=== PATIENT | female | born 1950 | race Caucasian/White ===

== ENCOUNTER 2017-10-31 08:16 | Emergency (ER) | payer MEDICARE, OTHER ==
[~2017-10-31] VITALS: Ht 167.6 cm; Wt 68.0 kg
[2017-10-31 08:42] LABS: ABSOLUTE LYMPHOCYTES 1.9 thou/uL (0.8-5.3); ABSOLUTE MONOCYTES 0.6 thou/uL (0.0-1.2); ABSOLUTE NEUTROPHILS 3.4 thou/uL (1.6-8.1); BASOPHILS 0.4 %; EOSINOPHILS 0.6 %; HEMATOCRIT 43.3 % (37.0-47.0); HEMOGLOBIN 14.4 gm/dL (12.0-15.0); LYMPHOCYTES 31.8 %; MCH 30.1 pg (26.0-34.0); MCHC 33.3 g/dL (28.0-37.0); MCV 90.4 fL (80.0-100.0); MONOCYTES 9.7 %; NUCLEATED RBCS 0 /100WBC; PLATELET COUNT* 269 thou/uL (150-400); POLYS 57.5 %; RBC 4.79 mil/uL (4.20-5.00); RDW-CV 13.8 % (10.5-14.5); WBC 5.9 thou/uL (4.0-11.0)
[2017-10-31 08:52] LABS: ANION GAP 10 mmol/L (7-16); BUN 11 mg/dL (7-18); CALCIUM 8.7 mg/dL (8.5-10.1); CHLORIDE 110 mmol/L (98-107); CO2 25 mmol/L (21-32); GLUCOSE 148 mg/dL (70-99); POTASSIUM 3.9 mmol/L (3.5-5.1); SODIUM 145 mmol/L (136-145)
[2017-10-31 08:57] LABS: APTT 27.5 Seconds (25.0-31.3)
[2017-10-31 09:03] LABS: ALBUMIN 3.1 g/dL (3.4-5.0); ALKALINE PHOSPHATASE 102 U/L (46-116); NT-PRO BRAIN NAT PEPTIDE 790 pg/mL (<300); SGOT 18 U/L (15-37); SGPT 22 U/L (30-65); TOTAL BILIRUBIN 0.5 mg/dL (<0.1-1.0); TOTAL PROTEIN 7.3 g/dL (6.4-8.2); TROPONIN-I LEVEL <0.06 ng/mL (<0.06)
[2017-10-31] MEDS ORDERED: TOPROL XL25 MG PO (09:47)
[2017-10-31 10:15] VITALS: BP 114/68
--- NOTE | 2017-10-31 16:03 | EKG ---
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1950 Requested By: Pamela Marie Order Number: [id number] MD: Duane Felix Measurements Intervals [place] Rate: 200 P: 0 WA: QRS: 34 QRSD: 89 T: 225 QT: 262 QTc: 478 Interpretive Statements Supraventricular tachycardia Repolarization abnormality, prob rate related Baseline wander in lead(s) III,aVL No previous ECG available for comparison Electronically Signed On 10-31-2017 16:03:30 CDT by Duane Felix [email or web address] <ELECTRONICALLY SIGNED> By: Duane Felix MD, [facility] 10/31/17 1603 2 2 Duane Felix MD, [facility] /EPI
--- NOTE | 2017-10-31 16:04 | EKG ---
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
== END 2017-10-31 10:15 | disposition home or self-care (01) ==
LOC: M.ERS 08:16
PROVIDERS: Personal Emergency Response Attendant
DX: I47.1 Supraventricular tachycardia (principal); Z88.0 Allergy status to penicillin

== ENCOUNTER → 2017-12-12 | Outpatient (CLI) | payer MEDICARE, OTHER ==
[~2017-12-12] MED LIST: APPLE CIDER VI300 MG; BONE ESSENT166.75 MG; ESSENTIAL WOMA1 EAC1; OMEGA-31000 M1; PROBIOTIC1 EAC1; TOPROL XL25 MG PO
--- NOTE | 2017-12-12 11:55 | 2DMMODE ---
[place] [address] 2 D/M-MODE ECHOCARDIOGRAM Name: ZOEY BEASLEY Room: [facility]#: [id number] Admission: 12/12/17 Attend Phys: Corey Joyce, Discharge: Date of : 50 Date of Service: 12/12/17 1155 Report #: [id number] THIS REPORT FOR: //name// APPROVED REPORT Study performed: 12/12/2017 09:22:09 EXAM: Comprehensive 2D, Doppler, and color-flow Echocardiogram Patient Location: Out-Patient Status: routine BSA: 1.91 HR: 62 bpm BP: 148/95 mmHg Other Information Study Quality: Good Indications SVT 2D Dimensions LVEF(%): 63.33 (>50%) IVSd: 8.90 (7-11mm) LVOT Diam: 31.06 (18-24mm) LVDd: 47.95 mm PWd: 6.66 (7-11mm) LVDs: 31.47 (25-40mm) Aortic Root: 26.56 mm Rocha's LVEF: 63.33 % Volumes Left Atrial Volume (Systole) LA ESV Index: 21.30 mL/m2 Aortic Valve AoV Peak Ignacio.: 1.51 m/s AO Peak Gr.: 9.11 mmHg LVOT Max P.15 mmHg AO Mean Gr.: 5.35 mmHg LVOT Mean P.37 mmHg LVOT Max V: 1.13 m/s AO V2 VTI: 36.48 cm LVOT Mean V: 0.70 m/s LANA (VTI): 5.99 cm2 LVOT V1 VTI: 28.84 cm Mitral Valve E/A Ratio: 1.24 MV Decel. Time: 196.83 [place] [address] 2 D/M-MODE ECHOCARDIOGRAM Name: ZOEY BEASLEY Room: [facility]#: [id number] Admission: 12/12/17 Attend Phys: Corey Joyce, Discharge: Date of : 50 Date of Service: 12/12/17 1155 Report #: [id number] MV E Max Ignacio.: 0.71 m/s MV PHT: 57.08 ms MVA (PHT): 3.85 cm2 TDI E/Lateral E': 6.45 E/Medial E': 6.45 Medial E' Ignacio.: 0.11 m/s Lateral E' Ignacio.: 0.11 m/s Pulmonary Valve PV Peak Ignacio.: 0.93 m/s PV Peak Gr.: 3.47 mmHg Tricuspid Valve TR Peak Gr.: 28.40 mmHg RVSP: 33.40 mmHg Left Ventricle The left ventricle is normal size. There is normal LV segmental wall motion. There is normal left ventricular wall thickness. Left ventricular systolic function is normal. The left ventricular ejection fraction is within the normal range. LVEF is 55-60%. The left ventricular diastolic function is normal. Right Ventricle The right ventricle is normal size. The right ventricular systolic function is normal. Atria The left atrium size is normal. The right atrium size is normal. Aortic Valve The aortic valve is normal in structure. No aortic regurgitation is present. There is no aortic valvular stenosis. Mitral Valve The mitral valve is normal in structure. Mild mitral regurgitation. No evidence of mitral valve stenosis. Tricuspid Valve The tricuspid valve is normal in structure. Mild tricuspid regurgitation. The RVSP is _33.4 mmHg. Pulmonic Valve The pulmonary valve is normal in structure. There is no [place]mon[place] [address] 2 D/M-MODE ECHOCARDIOGRAM Name: ZOEY BEASLEY Room: [facility]#: [id number] Admission: 12/12/17 Attend Phys: Corey Joyce, Discharge: Date of : 50 Date of Service: 12/12/17 1155 Report #: [id number] Great Vessels The aortic root is normal in size. IVC is normal in size and collapses with >50% inspiration Pericardium There is no pericardial effusion. <Conclusion> LVEF is 55-60%. Mild mitral regurgitation. Mild tricuspid regurgitation. The RVSP is _33.4 mmHg. <ELECTRONICALLY SIGNED> By: Duane Felix MD, FACC 12/12/17 1155 1155 1155 Duane Felix MD, FACC /INF
== END ==
LOC: M.CRD 08:41
DX: I08.1 Rheumatic disorders of both mitral and tricuspid valves (principal)

== ENCOUNTER 2018-01-25 05:01 | Emergency (ER) | payer MEDICARE, OTHER ==
[~2018-01-25] VITALS: Ht 167.6 cm; Wt 81.7 kg
[~2018-01-25 05:01] MED LIST changes: -APPLE CIDER VI300 MG; -BONE ESSENT166.75 MG; -ESSENTIAL WOMA1 EAC1; -OMEGA-31000 M1; -PROBIOTIC1 EAC1
[2018-01-25] MEDS ORDERED: PROBIOTIC1 EAC1 (05:08)
[2018-01-25] MEDS ORDERED: ESSENTIAL WOMA1 EAC1 (05:09)
[2018-01-25] MEDS ORDERED: BONE ESSENT166.75 MG (05:09)
[2018-01-25] MEDS ORDERED: OMEGA-31000 M1 (05:09)
[2018-01-25] MEDS ORDERED: APPLE CIDER VI300 MG (05:09)
[2018-01-25 05:23] LABS: ABSOLUTE EOSINOPHILS 0.1 thou/uL (0.0-0.7); ABSOLUTE LYMPHOCYTES 2.3 thou/uL (0.8-5.3); ABSOLUTE MONOCYTES 0.5 thou/uL (0.0-1.2); ABSOLUTE NEUTROPHILS 3.1 thou/uL (1.6-8.1); BASOPHILS 0.5 %; EOSINOPHILS 1.3 %; HEMATOCRIT 44.2 % (37.0-47.0); HEMOGLOBIN 14.7 gm/dL (12.0-15.0); LYMPHOCYTES 38.1 %; MCH 30.4 pg (26.0-34.0); MCHC 33.3 g/dL (28.0-37.0); MCV 91.2 fL (80.0-100.0); MONOCYTES 8.6 %; MPV 6.9 fl. (7.2-11.1); NUCLEATED RBCS 0 /100WBC; PLATELET COUNT* 268 thou/uL (150-400); POLYS 51.5 %; RBC 4.84 mil/uL (4.20-5.00); RDW-CV 14.1 % (10.5-14.5); WBC 5.9 thou/uL (4.0-11.0)
[2018-01-25 05:39] LABS: APTT 26.4 Seconds (25.0-31.3); PROTIME 9.5 Seconds (9.20-11.50)
[2018-01-25 05:50] LABS: ANION GAP 8 mmol/L (7-16); BUN 16 mg/dL (7-18); CALCIUM 9.1 mg/dL (8.5-10.1); CHLORIDE 105 mmol/L (98-107); CO2 28 mmol/L (21-32); CREATININE 0.7 mg/dL (0.6-1.3); GLUCOSE 113 mg/dL (70-99); POTASSIUM 3.7 mmol/L (3.5-5.1); SODIUM 141 mmol/L (136-145)
[2018-01-25 06:09] LABS: ALBUMIN 3.3 g/dL (3.4-5.0); ALKALINE PHOSPHATASE 113 U/L (46-116); CK-MB MASS 1.4 ng/mL (<0.5-3.6); LIPASE 155 U/L (73-393); MAGNESIUM 2.1 mg/dL (1.8-2.4); NT-PRO BRAIN NAT PEPTIDE 208 pg/mL (<300); SGOT 14 U/L (15-37); SGPT 20 U/L (30-65); TOTAL BILIRUBIN 0.6 mg/dL (<0.1-1.0); TOTAL PROTEIN 7.6 g/dL (6.4-8.2); TROPONIN-I LEVEL <0.06 ng/mL (<0.06)
[2018-01-25 06:20] VITALS: BP 106/71
--- NOTE | 2018-01-25 13:41 | EKG ---
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1950 Requested By: Pierce Bolanos Order Number: [id number] MD: Corey Joyce Measurements Intervals [place] Rate: 185 P: 0 MD: 40 QRS: 38 QRSD: 92 T: 266 QT: 270 QTc: 474 Interpretive Statements Supraventricular tachycardia Repolarization abnormality, prob rate related Compared to ECG 10/31/2017 08:29:41 Early repolarization now present Sinus tachycardia no longer present ST (T wave) deviation no longer present Electronically Signed On 01-25-2018 13:40:59 CDT by Corey Joyce [email or web address] <ELECTRONICALLY SIGNED> By: Corey Joyce MD, [facility] 01/25/18 1340 0507 0507 Corey Joyce MD, [facility] /EPI
--- NOTE | 2018-01-25 13:41 | EKG ---
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
== END 2018-01-25 06:26 | disposition home or self-care (01) ==
LOC: M.ERS 05:01
PROVIDERS: Family Medicine
DX: I47.1 Supraventricular tachycardia (principal); Z90.710 Acquired absence of both cervix and uterus; Z88.0 Allergy status to penicillin

== ENCOUNTER → 2018-02-27 | Outpatient (CLI) | payer MEDICARE, OTHER ==
[~2018-02-27] MED LIST changes: +APPLE CIDER VI300 MG; +BONE ESSENT166.75 MG; +ESSENTIAL WOMA1 EAC1; +OMEGA-31000 M1; +PROBIOTIC1 EAC1
== END ==
LOC: M.RAD 07:19
DX: Z12.31 Encounter for screening mammogram for malignant neoplasm of breast (principal)